=== PATIENT | female | born 1955 | race Caucasian/White ===

== ENCOUNTER → 2016-12-04 | Outpatient (CLI) | payer OTHER | LOC: FIMAGING 13:36 | PROVIDERS: ATTEND Internal Medicine | DX: R06.00 Dyspnea, unspecified (principal) ==

== ENCOUNTER → 2017-01-03 | Outpatient (CLI) | payer OTHER | LOC: FIMAGING 12:20 | DX: Z12.31 Encounter for screening mammogram for malignant neoplasm of breast (principal); Z80.3 Family history of malignant neoplasm of breast | CPT/HCPCS: G0202 ==

== ENCOUNTER 2017-08-10 13:47 | Emergency (ER) | payer OTHER ==
--- NOTE | 2017-08-10 14:06 | EDPHY ---
H & P Stated Complaint: Passed out;flu like sxs x 3 days w/neg flu swab on HPI/ROS: CHIEF COMPLAINT: Syncope HISTORY OF PRESENT ILLNESS: This patient is a 62 year old female arriving with her following a syncopal episode shortly prior to arrival. She has had an upper respiratory illness recently, worsening since Saturday, four days ago. Initially, she had a bad cough, no fever. She visited her primary care provider and had a negative flu swab at that time. The next day, she developed fever, chills, nausea, and muscle aches. This morning, she went to the restroom and began to feel very flushed and nauseous. She got up to unlock the bathroom door, and woke on the floor. Her at bedside states he heard a crash, and came to see his lying in the corner of the bathroom. She woke spontaneously. Currently, the patient endorses pain to the right of her sternum which is not increased with deep inspiration. She denies any other pain. She does not have headache or neck pain. Her temperature was 100.3 this morning, and she took Tylenol for relief. She has been able to eat and drink well, and denies vomiting, diarrhea, or dysuria. The patient denies any pain or swelling in her calves. She has no known family history of clotting, and no recent prolonged travel. REVIEW OF SYSTEMS: A ten point review of systems was performed and is negative with the exception of the items mentioned in the HPI. Past medical history: 1. GERD (Omeprazole) 2. Hyperthyroid (Levothyroxine) Past surgical history: Noncontributory. Family history: Noncontributory. Social history: . at bedside. PCP Dr. Blakely. General Appearance: Alert. Vital signs reviewed. Head: Normocephalic atraumatic. Eyes: Pupils equal and round, no conjunctival injection, no discharge. Anicteric. ENT, Mouth: Mucous membranes are dry, no oropharyngeal erythema or edema. External auditory canals and tympanic membranes normal. Neck: No lymphadenopathy, supple. No meningeal signs. Nontender to palpation over the cervical spine in the midline and no pain with active range of motion of her neck. Respiratory: Lungs are clear to auscultation; no wheezes, rales, or rhonchi. Thorax: No bruising. Nontender to palpation over the sternum and thorax both anteriorly and posteriorly. No crepitus. Cardiovascular: Regular rate and rhythm; no murmur, rub, or gallop. Gastrointestinal: Abdomen is soft and nontender, no masses or organomegaly, bowel sounds normal. Skin: Warm and dry, no rashes on exposed skin, normal color. Back: Nontender to palpation over the thoracolumbar spine. No CVAT. Extremities: No lower extremity edema, no calf tenderness or swelling. Neurological: Alert and oriented. Moving all four extremities easily and equally. IVY. EOMI. Tongue midline. Facial expression symmetric. Psychiatric: Normal affect. - Personal History Current Tetanus Diphtheria and Acellular Pertussis (TDAP): Yes - Medical/Surgical History Other PMH: thyroid. GERD - Social History Smoking Status: Never smoked Constitutional: Initial Vital Signs Temperature (C) 36.8 C 08/10/17 13:50 Heart Rate 78 08/10/17 13:50 Respiratory Rate 18 08/10/17 13:50 Blood Pressure 106/75 08/10/17 13:50 O2 Sat (%) 97 08/10/17 13:50 O2 Delivery Mode Room Air Allergies/Adverse Reactions: morphine Allergy (Mild, Verified 08/10/17 13:56) GI Penicillins Allergy (Unknown, Verified 08/10/17 13:56) Home Medications: Medication Instructions Recorded Benzonatate [Tessalon Pearles (RX)] 100 mg PO TID PRN #15 cap 08/10/17 Levothyroxine [Synthroid 100 mcg 100 mcg PO DAILY06 08/10/17 (*)] Omeprazole [Prilosec 20 mg] 20 mg PO DAILY 08/10/17 Ondansetron Odt [Zofran Odt 4 mg 4 mg PO Q4 PRN #10 tab 08/10/17 (RX)] Oseltamivir Phosphate [Tamiflu 75 75 mg PO BID #10 cap 08/10/17 mg (*)] Medical Decision Making - Diagnostics EKG Interpretation: The 12 lead EKG was interpreted by myself. See hard copy and/or "tracemaster" electronic copy for interpretation. Sinus rhythm, rate 74. No arrhythmia, no ischemic changes. Imaging: Discussed imaging studies w/ steel erecting pusher Radiologist ED Course/Re-evaluation: This 62 year-old female presents with fever, nausea, and cough and following a syncopal episode shortly prior to arrival. Exam unremarkable. The patient is neurologically intact. I do not find evidence of any injuries as a result of this syncopal fall. Plan for EKG, labs including CBC, BMP, D-dimer, repeat flu swab. Reviewed EKG. Sinus rhythm, no arrhythmias, no ischemic changes. 15:28 Elevated d-dimer at 4.02. Plan for CTA chest to rule out pulmonary embolism. 15:30 Reassessed patient. She is currently feeling nauseous. Plan to administer 4mg IV Zofran and 1L IV NS for symptom relief. Patient is positive for influenza B. 17:[address] Espino, radiologist. CTA negative for PE. No pneumonia. Evidence of bronchitis. 17:08 Reassessed patient. Plan to discharge home in good condition. Although she had a cough on Saturday she became ill yesterday. I am prescribing Tamiflu , cough medication, and Zofran p.r.n.. Discussed risks and benefits of Tamiflu administration. The patient is comfortable with this plan. I think that her syncope was related to this illness in the fact that she was using the toilet when it occurred. I do not suspect a cardiac arrhythmia. PE has been ruled out. No evidence of hypovolemia or blood loss. She received 1 L of IV normal saline in the emergency department. Differential Diagnosis: Syncope including but not limited to vasovagal syncope, arrhythmia, dehydration , and blood loss. I also considered a differential diagnosis including but not limited to pneumonia, urinary tract infection, viral syndrome, and influenza. - Data Points Laboratory Results: Laboratory Results 08/10/17 14:38 08/10/17 14:38 Medications Given: Discontinued Medications Sodium Chloride (Ns) 1,000 mls @ 0 mls/hr IV EDNOW ONE; Wide Open PRN Reason: Protocol Stop: 08/10/17 15:35 Last Admin: 08/10/17 15:40 Dose: 1,000 mls Ondansetron HCl (Zofran) 4 mg IVP EDNOW ONE Stop: 08/10/17 15:35 Last Admin: 08/10/17 15:40 Dose: 4 mg Departure - Departure Disposition: Home, Routine, Self-Care Clinical Impression: Influenza B Condition: Good Instructions: Influenza (ED) Additional Instructions: 1. Use ibuprofen and Tylenol as directed below as needed for fever and body aches. Take Tamiflu as prescribed. Take Tessalon Pearles as prescribed as needed for cough. Take Zofran as prescribed as needed for nausea. 2. Follow up with your primary care physician within 72 hours for reevaluation. 3. Drink plenty of fluids. 4. Return to the emergency department for high fever, severe headache or neck pain, difficulty breathing, abdominal pain, rash or other worsening of condition. Adult Pain & Fever Control: We recommend Acetaminophen (Tylenol) and Ibuprofen (Motrin,Advil) for pain and fever control. When fever is high or pain severe, both drugs can be used at the same time, but at different intervals. Please note the time differences. Your dose is: Acetaminophen 650mg every 4 to 6 hours Ibuprofen 400mg every 6-8 hours with food Note: do not take Acetaminophen with Hydrocodone (Vicodin, Lortab) or Oycodone (Percocet). These medications also contain Acetaminophen. No more than 3000mg of Acetaminophen should be taken in 24 hours (for an adult). Referrals: Krunal Blakely MD [Primary Care Provider] - As per Instructions Prescriptions: Benzonatate [Tessalon Pearles (RX)] 100 mg PO TID PRN #15 cap PRN Reason: Cough, Moderate Ondansetron Odt [Zofran Odt 4 mg (RX)] 4 mg PO Q4 PRN #10 tab PRN Reason: nausea Oseltamivir Phosphate [Tamiflu 75 mg (*)] 75 mg PO BID #10 cap Report Scribed for: Letha Holman Report Scribed by: Lacy Noriega Date of Report: 08/10/17 Time of Report: 14:19 Physician Review and Approval Statement: 08/10/17 14:05 Portions of this note were transcribed by the medical doctor. I, Dr. Letha Holman, personally performed the history, physical exam, and medical decision- making; and confirmed the accuracy of the information in the transcribed note.
--- NOTE | 2017-08-10 14:25 | CPEKG ---
Heart Rate: 74 RR Interval: 811 P-R Interval: 164 QRSD Interval: 86 QT Interval: 380 QTC Interval: 422 P [place]: 49 QRS [place]: 82 T Wave [place]: 73 EKG Severity - OTHERWISE NORMAL ECG - EKG Impression: SINUS RHYTHM EKG Impression: BORDERLINE RIGHT AXIS DEVIATION EKG Impression: LOW VOLTAGE IN FRONTAL LEADS Electronically Signed By: Letha Holman 10-Aug-2017 20:37:41
[2017-08-10 14:46] LABS: PLATELET COUNT 182 10^3/uL (150-400)
[2017-08-10] MEDS ORDERED: ONDANSETRON 4 MG/2 ML VIAL IVP ONE (15:34)
[2017-08-10] MEDS ORDERED: NS 1,000 ML IV ONE (15:34)
[2017-08-10] MEDS ORDERED: IOPAMIDOL (ISOVUE 370) 100 ML BTL IV ONE (15:42)
[2017-08-10 16:14] VITALS: O2SAT 95
[2017-08-10 17:29] VITALS: BP 105/71; PULSE 74; RESP 18; TEMP 98.2
--- NOTE | 2017-08-12 19:02 | ASMTCMCOM ---
CM Note CM Note Notes: Received a message forwarded by patient manufacturers service representative. Patient's , Ty called pt rep with questions regarding pt's recent ED visit and flu diagnosis. CM called and spoke with Rich and patient on the phone. Ty requested copies of patient's lab results, etc; pt provided medical records number. Ty also requested a letter be written explaining patient is not fir for travel, in order for him to provide to airline since patient can't make their flight tomorrow. We discussed that patient's PCP Dr Blakely would most likely be the best clinician to provide that letter. Patient had not called Dr Blakely's office and made an appt yet. Ty and pt requested this CM call Dr Blakely's office for them and relay their requests and appointment need. This CM called and spoke with Jenna ([phone]) Clinical Coordinator at [facility]; she will reach out to patient and schedule an appt to go over letter for airline and re-assess patient. Date Signed: 08/12/2017 07:02 PM Electronically Signed By:Radha Bhakta RN
== END 2017-08-10 17:33 | disposition home or self-care (01) ==
DX: J10.1 Influenza due to other identified influenza virus with other respiratory manifestations (principal); E86.9 Volume depletion, unspecified
CPT/HCPCS: 96374; J2405; Q9967

== ENCOUNTER → 2018-02-18 | Outpatient (CLI) | payer OTHER | LOC: FIMAGING 10:08 | PROVIDERS: ATTEND Internal Medicine | DX: Z12.31 Encounter for screening mammogram for malignant neoplasm of breast (principal); Z80.3 Family history of malignant neoplasm of breast ==